=== PATIENT | female | born 1955 | race Caucasian/White ===

== ENCOUNTER → 2020-09-05 15:01 | Outpatient (CLI) | payer OTHER, SELFPAY ==
--- NOTE | 2020-09-05 15:03 | CT_ITS ---
STUDY: CT SCAN LOWER EXTREMITY LEFT REASON FOR EXAM: Female, 65 years old. UNILATERAL PRIMARY OSTEOARTHRITIS, L HIP.Calvin protocol. RADIATION DOSAGE (If Supplied By Facility): CTDIvol = ( 12.96 ) mGy, DLP = ( 737.59 ) mGycm. Individualized dose optimization techniques were used for this CT.? TECHNIQUE: Multiple axial tomographic images were obtained without intravenous contrast administration. Coronal and sagittal reconstructions obtained as well. COMPARISON: None. FINDINGS: There is a marked degree of joint space narrowing and osteoarthritis involving the left hip joint with a subchondral geodes involving the subchondral aspect of the femoral head and lateral aspect of the acetabulum. There is a 8.4 mm sclerotic density along the posterior aspect of the left acetabulum. Imaging of both knee joints were obtained in the coronal views. There is a marked degree of joint space narrowing involving the medial compartments. CT/Extremity Lower without Contra IMPRESSION: Marked degree of degenerative changes involving the left hip joint with subchondral cysts in the acetabulum and left femoral head. Joint space narrowing of the medial compartments of both knee joints. Electronically Signed: Riley Coon MD at 15:46 EDT , Service support ,
== END ==
PROVIDERS: PCP Physician Assistant; Referring Provider Orthopaedic Surgery; Visit Provider Orthopaedic Surgery
DX: M16.12 Unilateral primary osteoarthritis, left hip (principal)
CPT/HCPCS: 73700

== ENCOUNTER 2020-09-11 14:09 | Observation (INO) | payer OTHER, SELFPAY ==
--- NOTE | 2020-09-01 11:47 | EKG12_ITS ---
Test Reason : PREOP Blood Pressure : / mmHG Vent. Rate : 069 BPM Atrial Rate : 069 BPM P-R Int : 198 ms QRS Dur : 082 ms QT Int : 380 ms P-R-T Axes : 062 068 056 degrees QTc Int : 407 ms Normal sinus rhythm Normal ECG Confirmed by COLTEN OWENS, JOAO ([id number]), design editor ZACHARIAH STAUFFER ([id number]) on 09/05/2020 10:22:28 AM Referred By: Ashvin Boyd Confirmed By:JOAO ABEL MD
[2020-09-01 13:04] LABS: Magnesium 2.4 mg/dL (1.6-2.6)
[2020-09-11] VITALS (12 sets, daily range): BP systolic 101–124; BP diastolic 47–72; PULSE 68–90; RESP 14–16; TEMP 35.6–36.4; O2SAT 94–100; BMI 25.9; BMI 27.4
--- NOTE | 2020-09-11 | HIP_PTH ---
PATIENT: GEORGE MEJIA LOC: [facility] U#:[id number] AGE/SX: 65/F ROOM: AZ316 RE09/11/[address]: Dr. Ashvin Boyd MD : [id number] BED: 1 DIS: 09/12/2020 SPEC #: [id number] RECD: 09/11/20 13:03 STATUS: CAYLA DORMAN #: [id number] JACINTO: 09/11/20 00:[address]: Ashvin Boyd DEPT: SURGICAL PATHOLOGY RECD BY: Heriberto Arnett ENTERED: 09/11/20 13:03 SP TYPE: TOTAL HIP OTHR DR: DANNY Figueroa Tissues: Hip, NOS Procedures: Decalcification bone/plaque Surgery Specimen Level IV HEADER OPERATION: ERAS, total hip replacement robotic arm assist PRE-OP DIAGNOSIS: Primary osteoarthritis left hip TISSUE SUBMITTED: Left hip and tissue MICROSCOPIC DIAGNOSIS Left hip bone and soft tissue, total hip replacement/resection: Femoral head with degenerative osteoarthritic changes. Fragments of fibroadipose tissue and fibroconnective tissue. LIBORIO:inessa 09/14/2020 MICROSCOPIC DESCRIPTION Slides are reviewed. GROSS DESCRIPTION Received is one container labeled with the patient's name and designated left hip bone and tissue. The specimen consists of a deformed femoral head measuring 5.5 x 5 x 3.5 cm. A portion of femoral neck measures up to 1.5 cm in length. The articular surface displays prominent osteophyte formation, eburnation and bone erosion. Also present in the specimen container are multiple irregular fragments of bone reamings and pink-yellow soft tissue measuring in aggregate 7 x 5 x 1.5 cm. Cabin Furnishings Installer sections are submitted in two cassettes as follows: 1 - soft tissue, 2 - bone after decalcification. / LIBORIO:inessa 09/11/20 TC:5 CPT: 84803, 87781
[2020-09-11] MEDS: Lactated Ringers 1,000 ML 100 ML IV ×2 (06:38→10:00)
[2020-09-11] MEDS: Scopolamine 1mg/72hr Patch 1 PATCH TD (06:40)
[2020-09-11] MEDS: Celecoxib 200 MG Capsule 400 MG PO (06:40)
[2020-09-11] MEDS: Acetaminophen 500 MG Tablet 1000 MG PO ×3 (06:40→20:59)
[2020-09-11 07:50] LABS: Bedside Glucose 96 mg/dL (70-110)
[2020-09-11] MEDS: Cefazolin 2 GM in 0.9% Normal Saline 100 ML IV (07:57)
--- NOTE | 2020-09-11 07:57 | RAD_ITS ---
STUDY: X-RAY - PELVIS AND LEFT HIP REASON FOR EXAM: Female, 65 years old. Post Op -- AP both hips on single dar/lateral of op hip PACU TECHNIQUE: 2 views of the pelvis and hip. COMPARISON: None. FINDINGS: The patient is status post left hip replacement. There is good alignment. Postoperative soft tissue swelling. RAD/Hip Min 2 Views (Portable) IMPRESSION: The patient is status post left hip replacement. There is good alignment. Postoperative soft tissue changes. Electronically Signed: Riley Coon MD at 12:15 EDT , Service support ,
[2020-09-11] MEDS: dexAMETHasone 10 MG/ML Vial IV (08:15)
--- NOTE | 2020-09-11 10:32 | OP.PCM_ITS ---
Problems Associated Problem List Diagnoses (1) Arthritis of left hip: Operative Report Date of Procedure: 09/11/20 Preoperative diagnosis: left hip primary osteoarthritis Postoperative diagnosis: Same Operation: [left] total hip replacement surgery, Calvin robotically assisted Surgeon: Dr. Ashvin Boyd MD Personal Care Attendant: PAULINO Jolly medical technician assistant Anesthesia: Spinal, LMA Anesthesiologist El Special medications: IV [Ancef], IV Tranexamic acid Indications for surgery : Patient is a [ 65]-year-old female with a long- standing history of [left] severe hip pain that has failed adequate nonoperative treatment. Due to persistent pain and disability, they decided to proceed with hip replacement surgery. Appropriate informed consent was obtained and signed. Appropriate medical workup was performed preoperatively and patient was deemed safe for surgery by the anesthesia department as well. medical technician assistant, physician medical technician assistant, was utilized throughout the entire procedure. They were vital in helping with patient positioning, holding of retractors, exposing the tissues adequately for safe completion of the procedure including cutting of the bone, helping demo event specialist appropriate alignment and sizing of the components, implantation of the components, as well as wound closure, bandage application, and safe patient transfer. Without surgical services director, physician medical technician assistant, surgical time would have been significantly increased, and surgical outcome would have been less optimal. Operative findings: Patient had severe arthritis of the involved hip joint. They underwent a small posterior approach to the hip. Calvin robot with appropriate checkpoints in the pelvis and greater trochanter replaced and then ultimately removed when finished. Array was placed on the pelvis iliac crest per standard technique and agree when no longer needed. We utilized a size [4 press-fit Accolade 2 stem] 132 degree neck angle, a press fit acetabular component size [48] titanium cluster, Trident X3 polyethylene liner with a 36 mm inner diameter, a Biolox ceramic femoral head size [36] with a -2.5 neck length. 2 appropriately sized screws were placed in the acetabular component. This reproduced their anatomy nicely. Clinically good leg lengths were noted. Good hip stability through range of motion with no undue pistoning. Standard wound closure in layers, followed by winter, followed by Mepilex dressing Details of procedure: Patient was taken to the operating room and transferred to the operating table. Given appropriate anesthetic agent by that department. Patient was then rolled into a lateral decubitus position with the involved p ainful hip up in the air. Appropriate timeouts had been performed. Hip had been appropriately marked with my initials. Padded anterior and posterior position was utilized. Axillary roll placed. RAISSA hose and SCDs on the nonoperative limb utilized throughout the procedure. Tranexamic acid and IV antibiotics given preoperatively. Operative lower extremity was prepped padded and draped in the usual orthopedic sterile fashion for the procedure. I injected the pain relieving solution in the standard sterile technique of the soft tissues of the hip carefully. Incision was made curving over the tip of the greater trochanter posteriorly. Full thickness skin flaps are raised down on the fascia ralf. Fascia ralf was opened in length with our incision. Charnley self-retaining hip retractor was carefully placed by the surgeon. Leg was appropriately rotated and held by the medical technician assistant. Retractor was used to lift the abductors anteriorly to visualize the piriformis tendon and external r otators. Area was infiltrated with pain relieving cocktail. Piriformis tendon and external rotators released off the greater trochanter with the Bovie. Tagging suture was placed in each of these separately. We then split the tissue superior to the piriformis tendon through capsule and onto the pelvis. Acetabular labrum was also divided. 3 pins were placed in the iliac crest per standard technique. Array was placed. Checkpoint was placed on the superior portion of the outer rim of the pelvis. Checkpoint was placed on the greater trochanter inferiorly. Lateral femoral condyle point had been placed previously outside the skin. With traction and manipulation arthritic femoral head was dislocated from the acetabulum. Retractors were carefully placed around the femoral neck. Cutting guide was utilized to map out the proposed cut approximately 1 fingerbreadth above the lesser trochanter. This femoral neck cut was carried out with a saw. Arthritic femoral head removed and measured and inspected. Inferior acetabular retractor was placed by the surgeon, held by the medical technician assistant. Bone hook utilized to pull the proximal femur anteriorly. Labrum removed from about the acetabulum a long knife. Tissue removed from the depth of the acetabulum with the Bovie. Arthritic acetabulum was noted. Acetabulum was registered. We began reaming with the appropriate sized reamer. Reaming was done with 45? of abduction, 20? of anteversion, reproducing there anatomy. Appropriate abduction and anteversion confirmed as well as size and position of cup. We irrigated with bulb syringe saline. Appropriate acetabular opponent was opened and hammered into position with the outrigger device, with 45? of abduction and 20 degrees of anteversion. We could see through the hole in the cup it was adequately down onto the bone in the pelvis. Good stability was noted. 2 screws were placed in the acetabulum for further stability. Any anterior and/ or posterior osteophytes removed with an osteotome, rondure. Acetabular retractors removed. A proximal femoral elevator utilized. Held by the medical technician assistant. We used a sharp awl entering down inside the bone of the proximal femur. Utilized the Press cutting osteotome in the proximal lateral greater trochanteric region. The fragment removed. Broaching was then done from the smallest broach, upto the appropriate size. Good stability was confirmed. We then trialed the construct with a standard neck length and appropriate sized femoral head on 132? angle neck. We were happy with the construct. Good stability to flexion, rotation by the medical technician assistant. At this point trials removed. I now placed the appropriate polyethylene acetabular liner into a clean dry previously placed shell. This was hammered into position. Suction device was used to confirm its stability. We now exposed the proximal femur with appropriate retractors in place, held by the medical technician assistant, actual femoral stem was checked, opened, and then hammered into t he proximal femur and seated down to a similar position as the trial had. Small crack at the inferior calcar region was noted. One cable was placed under standard technique. We now again trialed appropriate neck length upon. It was then opened. Now impacted the appropriate sized femoral head, neck construct onto the clean dried trunion. Was noted to be stable. Hip was inspected, and joint was reduced for a final time. Good hip stability and leg lengths noted. This was then irrigated with saline and cleaned. Next the remainder of the pain relieving solution was injected carefully throughout the soft tissues of the hip joint. Calvin used to confirm leg lengths. Checkpoints removed. 3 pins in the pelvis were removed Closure was carried out with a combination of #1 Vicryl, running #2 strata fix in the fascia ralf, followed by mid layer #1 Vicryl with #1 strata fix running. Next running 0 strata fix, followed by skin winter, Xeroform, Mepilex dressing. We placed RAISSA hose and SCD on the operative leg. Patient awoken from the anesthetic and transferred back to room bed in recovery room in satisfactory condition. Patient will be admitted for pain management, PT, IV antibiotics, medication for DVT prevention. Hospitalist consulted for postoperative medical management. Hopeful discharge to home in 1 days This note was generated with [employer] dictation software. It may contain incorrect words, spelling, and punctuation that were not noted in checking the note before signing.
[2020-09-11] MEDS: Lactated Ringers 1,000 ML 125 ML IV ×2 (12:38→20:48)
[2020-09-11] MEDS: Cefazolin 1 GM/50 ML BAG IV ×2 (13:50→20:59)
[2020-09-11] MEDS: Senna/Docusate Sodium 1 Tablet 2 TABLET PO ×2 (13:50→21:00)
[2020-09-11] MEDS: Famotidine 20 MG Tablet PO (13:50)
[2020-09-11] MEDS: Aspirin 81 MG TAB.CHEW PO (13:50)
[2020-09-12 00:35] VITALS: BP 93/56; PULSE 79; RESP 16; TEMP 36.9; O2SAT 97
[2020-09-12] MEDS: Acetaminophen 500 MG Tablet 1000 MG PO ×2 (05:00→14:30)
[2020-09-12 05:03] VITALS: BP 92/56; PULSE 73; RESP 18; TEMP 36.9; O2SAT 98
[2020-09-12] MEDS: oxyCODONE 5 MG Tablet PO (06:52)
[2020-09-12 06:58] LABS: Hematocrit 34.2 % (37-47); Hemoglobin 10.8 g/dL (12.0-15.0); Mean Corp Hgb Conc 31.6 g/dL (32-36); Mean Corpuscular Hgb 28.7 pg (27.0-32.0); Platelet Count 251 K/mm3 (150-450); RBC Distribution Width CV 13.5 % (11.6-14.6); RBC Distribution Width SD 45.1 fl (35.1-43.9); Red Blood Count 3.76 M/mm3 (4.2-5.4); White Blood Count 12.5 K/mm3 (4.4-11.0)
--- NOTE | 2020-09-12 07:10 | PN.ORTHO_ITS ---
Subjective Subjective Patient is postoperative day #1 from left total hip replacement. Hip is feeling better now than before surgery. Different discomfort. No longer having her sharp arthritic pain. Denies chest pain or shortness of breath. No history of DVTs. Planning for discharged home later today. According to her nurse that she did very well overnight. Seen with nursing staff present Objective Data Objective Data Vital Signs: Vital Signs Temp Pulse Resp BP Pulse Ox 98.5 F 73 18 92/56 L 98 09/12/20 05:03 09/12/20 05:03 09/12/20 05:03 09/12/20 05:03 09/12/20 05:03 Oxygen Flow Rate (L/min) 6 Oxygen Delivery Method Room Air Weight: 74.9 kg Body Mass Index (BMI) 27.4 Intake & Output: Intake and Output for Last 24 Hours 09/10/20 09/11/20 09/12/20 23:59 23:59 23:59 Intake Total 4036.59 / 4036.59 418.75 / 418.75 Output Total 100 / 100 Balance 3936.59 / 3936.59 418.75 / 418.75 Lab / Micro Data Result Diagrams: 09/12/20 06:20 Labs: Laboratory Results - last 24 hr 09/11/20 09/12/20 06:18 06:20 WBC 12.5 H RBC 3.76 L Hgb 10.8 L Hct 34.2 L MCV 91.0 MCH 28.7 MCHC 31.6 L RDW Std Deviation 45.1 H RDW Coeff of Janusz 13.5 Plt Count 251 MPV 10.0 POC Glucose 96 Micro: Microbiology 09/08/20 08:30 Interface Orders SARS-CoV-2 Antigen (Rapid) - Final 09/01/20 12:04 Interface Orders Nasal Screen MRSA/MSSA - Final Radiography Diagnostic Testing: Radiology Impression Hip X-Ray 09/11/20 07:57 IMPRESSION: The patient is status post left hip replacement. There is good alignment. Postoperative soft tissue changes. Electronically Signed: Riley Coon MD at 12:15 EDT , Service support , Physical Exam Narrative Left hip bandages on clean and dry. No blood noted. Minimal bruising. Minimal swelling. No calf pain or swelling bilaterally. Negative Homans' sign bilaterally. Good active motion toes and ankles. Clinically leg lengths are e qual. No deformity at the left hip. X-rays reviewed showing a left total hip replacement in good position. 2 screws noted for the acetabular component. Cerclage wire noted proximal femur. Laboratory work and vital signs reviewed Assessment & Plan Assessment/Plan (1) Arthritis of left hip: PLAN: Patient is postoperative day #1 from left total hip replacement. She can be weightbearing as tolerated. Aspirin 81 mg twice daily for DVT prevention for 1 month. Narcotic pain medication as needed appropriate for her diagnosis. Stool softener as needed. She will do outpatient therapy. Follow- up in 2 weeks with orthopedics. Hip dislocation precautions explained. Wound care explained
--- NOTE | 2020-09-12 07:14 | PCM.DC ---
Discharge Instructions Diet Discharge Diet: No restrictions Activity Discharge Activity: Return to Normal Activity and May Shower Ice area for (Minutes): 20 Weight Bearing Status: Weight bearing as tolerated Dressing / Incision Call your doctor if your incision/area has: Continuous Slow Oozing, Sudden Increased Bleeding, Increased Pain/ Swelling and Foul Smelling Discharge Call your doctor if you observe: Fever of 101 or Higher, Inability to urinate, Inability to have a bowel movement, Shortness of breath, Calf discomfort and Uncontrolled pain Suture Line Care: Avoid Pulling/Pushing Change Dressing in: 5 days Remove Dressing in: 5 days Cleanse incision/area with: Soap & Water Additional Dressing/Incision Instructions:: ortho d/c instruction sheet Follow Up Care Test Results: Test results from this visit will be discussed in further detail at your follow-up appointment, if applicable. Discharge Plan Admission Admit Date/Time: 09/11/20 14:09 Attending Provider: Ashvin Boyd Primary Care Provider: Mikala Weldon Discharge Orders/Prescriptions Prescriptions: New acetaminophen 500 mg Tablet 1,000 mg PO Q8 Qty: 30 RF: 0 sennosides-docusate sodium [Stool Softener-Stimulant Laxat] 8.6-50 mg Tablet 2 tab PO BID Qty: 20 RF: 1 aspirin 81 mg Tablet,Chewable 81 mg PO BIDCM Qty: 60 RF: 0 oxycodone 5 mg Tablet 5 - 10 mg PO Q4H PRN PRN (Reason: Pain Score 4-10) 7 Days Qty: 56 RF: 0 Other Ambulatory Orders: 12 Lead EKG (Routine) Location: None Selected Ordered By: Dr. Mike Gallegos Physical Therapy Evaluation (Routine) Location: None Selected Ordered By: Dr. Ashvin Boyd Referrals / Follow Up: Mikala Weldon PA [Primary Care Provider] - Disposition Disposition (needs filled in before D/C Order can be placed): Home, self care
[2020-09-12] MEDS: dexAMETHasone 10 MG/ML Vial IV (09:55)
[2020-09-12] MEDS: Famotidine 20 MG Tablet PO (09:56)
[2020-09-12] MEDS: Senna/Docusate Sodium 1 Tablet 2 TABLET PO (09:56)
[2020-09-12] MEDS: Aspirin 81 MG TAB.CHEW PO (09:56)
[2020-09-12] MEDS: 0.9% Saline Lock 10 ML Syringe IV (09:56)
[2020-09-12 10:00] VITALS: BP 104/57; PULSE 79; RESP 18; TEMP 36.6; O2SAT 96
--- NOTE | 2020-09-12 10:40 | CASEMGMT ---
RN HALEIGH Face to Face with patient for initial transition planning/care coordination assessment. RN CM introduced self and role at [facility]. Patient sitting in chair, alert and oriented, at bedside. Patient willing to participate in assessment and is able to answer all questions appropriately. Care providers, pharmacy, and demographics verified. Patient wishes to discharge home and is setup with [facility] for outpatient therapy. Patient states she has no further needs or concerns at this time. CM to follow for discharge planning needs that may arise. PCP: [facility] Specialists: sami Boyd Pharmacy: [facility] retail Insurance: MMO Prescription Benefit: yes Living Will/HPOA: none LNOK: Living Arrangements: Patient lives with in a 2 story home with bed and bath on first floor. 2 steps to enter the home. Patient states she was independent at home prior to surgery Transportation: DME/HHC: Patient states she has tub bench, raised toilet, hip kit, and walker at home. Patient is scheduled for outpatient therapy at [facility] starting . Disposition Plan: Patient to discharge home with famiy support and follow-up plans in place. Lakshmi LUCERO, RN, CM
== END 2020-09-12 14:50 | disposition home or self-care (01) ==
LOC: SDC 14:41 → MS3 14:41
PROVIDERS: Anesthesiology; Admitting Provider Orthopaedic Surgery; PCP Physician Assistant; Referring Provider Orthopaedic Surgery; Visit Provider Orthopaedic Surgery
PROC: 8E0Y0CZ Robotic Assisted Procedure of Lower Extremity, Open Approach (ICD-10-PCS; CPT 27130; principal; 2020-09-11 07:30)
DX: M16.12 Unilateral primary osteoarthritis, left hip (principal); E66.3 Overweight; Z68.28 Body mass index [BMI] 28.0-28.9, adult
CPT/HCPCS: 01214; 27130; S2900; 36415; 73502; 82962; 83735; 85027; 87081; 87426; 88305; 88311; 93005; 96361; 96365; 96366; 97162; 97166; 97530; 97535; 99218; 99251; C1713; C1776; C9803; J7120; A4216; G0378; G0379; G0463; J2405